=== PATIENT | female | born 1965 | race Native Hawaiian/Other Pacific Islander ===

== ENCOUNTER 2017-05-19 13:51 | Emergency (ER) | payer BC ==
[~2017-05-19] VITALS: Ht 167.6 cm; Wt 62.6 kg
== END 2017-05-19 18:12 | disposition left against medical advice (07) ==
LOC: ED 13:51
DX: H66.91 Otitis media, unspecified, right ear (principal); I63.8 Other cerebral infarction
CPT/HCPCS: 96372; 99283; J0696